=== PATIENT | female | born 1985 | race Caucasian/White ===

== ENCOUNTER 2020-12-05 21:09 | Emergency (ER) | payer OTHER ==
[~2020-12-05] VITALS: Ht 177.8 cm; Wt 126.2 kg
--- NOTE | 2020-12-05 21:42 | PHYS DOC ---
General Adult EDM: Chief Complaint: ABDOMINAL PAIN HPI: HPI: Patient is a 35-year-old female coming in for epigastric pain since yesterday and one episode of emesis just prior to arrival. Patient states the last time she ate or drink anything was about 7 hours prior to arrival. Denies any blood or bile in her vomitus. Denies any constipation or diarrhea, last bowel movement earlier today. Patient states she has a history of ulcers. Denies any history of pancreatitis or gallbladder disease. Patient states she has been under increased stress. Has not taken anything other than Aleve [id number] for the pain. Denies any fevers, cough, changes in urination. Is not taking any antacid medications. Review of Systems: Review of Systems: All other systems within normal limits except for as noted in the HPI Current Medications: Current Meds: Current Medications Medications (Trade) Dose Ordered Sig/Darling Start Time Stop Time Status Last Admin Dose Admin Multi-Ingredient Mouthwash/Gargle (Gi Cocktail) 20 ml 1X ONCE 12/05/20 21:45 12/05/20 21:46 UNV Ondansetron HCl (Zofran) 4 mg 1X ONCE 12/05/20 21:45 12/05/20 21:46 UNV Allergies: Allergies: Allergies Coded Allergies Type Severity Reaction Last Updated Verified No Known Drug Allergies 12/05/20 No Physical Exam: PE: Constitutional: Well developed, well nourished, no acute distress, non-toxic appearance. [] HENT: Normocephalic, atraumatic, bilateral external ears normal, nose normal. [] Eyes: PERRLA, conjunctiva normal, no discharge. [] Neck: No rigidity, supple, no stridor. [] Cardiovascular: Regular rate and rhythm, brisk cap refill [] Lungs & Thorax: Non labored symmetric respirations, no tachypnea or respiratory distress [] Abdomen: Soft, nondistended, no guarding or rebound, positive Alvarez sign, except gastritis, no hepatosplenomegaly. Skin: Warm, dry, no erythema, no rash. [] Back: Unremarkable Extremities: No deformities, range of motion grossly intact, no lower extremity edema [] Neurologic: Alert and oriented X 3, no focal deficits noted. [] Psychologic: Affect normal, judgement normal, mood normal. [] EKG: EKG: [] Radiology/Procedures: Radiology/Procedures: CT abdomen pelvis with contrast dated 12/05/2020. No comparison available. Clinical data indication: Right upper quadrant pain. TECHNIQUE: Contiguous axial imaging of the abdomen pelvis performed after the administration of 75 cc Omnipaque 300. One or more of the following individualized dose reduction techniques were utilized for this examination: 1. Automated exposure control 2. Adjustment of the mA and/or kV according to patient size 3. Use of iterative reconstruction technique. FINDINGS: Limited images of lung bases are clear. Heart size within normal limits. No pleural or pericardial effusion. Liver is of diffuse low density, compatible with fatty infiltration. No apparent mass. Biliary tree normal in caliber. Gallbladder unremarkable. Spleen is normal in size. Pancreas, adrenal glands and kidneys are unremarkable. No hydronephrosis. Unopacified GI tract normal in caliber and contour. No focal bowel wall thickening. No inflammatory stranding in the mesentery. No ascites or lymphadenopathy. Appendix is not clearly identified. No inflammatory changes in the right lower quadrant. Images of pelvis show nondistended urinary bladder. Uterus is surgically absent. No free fluid or lymphadenopathy. Bone windows show no acute findings. IMPRESSION: 1. No acute abnormality of abdomen or pelvis. 2. Mild fatty infiltration of the liver.[] Heart Score: C/O Chest Pain: No Risk Factors: Risk Factors: DM, Current or recent (<one month) smoker, HTN, HLP, family history of CAD, obesity. Risk Scores: Score 0 - 3: 2.5% MACE over next 6 weeks - Discharge Home Score 4 - 6: 20.3% MACE over next 6 weeks - Admit for Clinical Observation Score 7 - 10: 72.7% MACE over next 6 weeks - Early Invasive Strategies Course & Med Decision Making: Course & Med Decision Making Pertinent Labs and Imaging studies reviewed. (See chart for details) Currently improved with GI cocktail. His treatment for gastritis return precautions. [] Anthony Disclaimer: Anthony Disclaimer: This electronic medical record was generated, in whole or in part, using a voice recognition dictation system. Departure Departure: Impression: Primary Impression: Epigastric abdominal pain Disposition: 01 DC HOME SELF CARE/HOMELESS Condition: IMPROVED Referrals: SELVIN WHITING-C (PCP) Patient Instructions: Gastritis, Adult Scripts Ondansetron (ONDANSETRON ODT) 4 Mg Tab.rapdis 1 TAB PO PRN Q6-8HRS PRN for NAUSEA for 5 Days, #10 TAB Prov: LAINEY DUBON MD 12/05/20 Omeprazole (OMEPRAZOLE) 20 Mg Tablet.dr 1 TAB PO DAILY for antacid for 30 Days, #30 TAB 1 Refill Prov: LAINEY DUBON MD 12/05/20 Sucralfate (CARAFATE) 1 Gm Tablet 1 TAB PO QID for antacid for 30 Days, #120 TAB 0 Refills Prov: LAINEY DUBON MD 12/05/20 LAINEY DUBON MD Dec 05, 2020 21:42
[2020-12-05] MEDS ORDERED: LIDO:MAALOX 1:1 20 ML SINGLE DOSE. PO ONE (21:45)
[2020-12-05] MEDS ORDERED: ONDANSETRON PF 4 MG/2 ML VIAL. IVP ONE (21:45)
[2020-12-05] MEDS ORDERED: IOHEXOL 300 MG/ML 75 ML VIAL. IV ONE (21:45)
[2020-12-05] MEDS ORDERED: CONTRAST GIVEN. MC PRN (22:15)
[2020-12-05 22:24] LABS: BASO % 0 % (0-3); EOS # 0.1 x10^3/uL (0.0-0.7); EOS % 1 % (0-3); HEMATOCRIT 43.4 % (39.0-53.0); HEMOGLOBIN 14.3 g/dL (13.0-17.5); LYMPH # 0.7 x10^3/uL (1.0-4.8); LYMPH % 4 % (24-48); MEAN CORPUSCULAR HEMOGLOBIN 29 pg (25-35); MEAN CORPUSCULAR HGB CONC 33 g/dL (31-37); MEAN CORPUSCULAR VOLUME 88 fL (79-100); MONO # 0.6 x10^3/uL (0.0-1.1); MONO % 4 % (0-9); NEUT # 14.8 x10^3uL (1.8-7.7); NEUT % 91 % (31-73); PLATELET COUNT 310 x10^3/uL (140-400); RED BLOOD COUNT 4.91 x10^6/uL (4.30-5.70); RED CELL DISTRIBUTION WIDTH 13.4 % (11.5-14.5); WHITE BLOOD COUNT 16.2 x10^3/uL (4.0-11.0)
[2020-12-05 22:31] LABS: COLOR,URINE YELLOW
[2020-12-05 22:32] LABS: AMORPHOUS SEDIMENT,UR PRESENT /HPF; BACTERIA,URINE 0 /HPF (0-FEW); BILIRUBIN,URINE SMALL (NEG); CLARITY,URINE CLOUDY; GLUCOSE,URINE NEG (NEG); NITRITE,URINE NEG (NEG); RBC,URINE 0 /HPF (0-2); SQUAMOUS EPITHELIAL CELL,UR OCC /LPF; UROBILINOGEN,URINE 0.2 mg/dL (0.2 mg/dL); WBC,URINE RARE /HPF (0-4)
[2020-12-05 22:42] LABS: % BANDS 5 % (0-9); % LYMPHS 3 % (24-48); % MONOS 3 % (0-10); % SEGS 89 % (35-66); CALCIUM 8.8 mg/dL (8.5-10.1); CREATININE 0.8 mg/dL (0.7-1.3); PLT ESTIMATE ADEQUATE (ADEQUATE); POTASSIUM 3.8 mmol/L (3.5-5.1)
--- NOTE | 2020-12-05 22:47 | RAD ---
CT abdomen pelvis with contrast dated 12/05/2020. No comparison available. Clinical data indication: Right upper quadrant pain. TECHNIQUE: Contiguous axial imaging of the abdomen pelvis performed after the administration of 75 cc Omnipaque 300. One or more of the following individualized dose reduction techniques were utilized for this examinat ion: 1. Automated exposure control 2. Adjustment of the mA and/or kV according to patient size 3. Use of iterative reconstruction technique. FINDINGS: Limited images of lung bases are clear. Heart size within normal limits. No pleural or pericardial ef fusion. Liver is of diffuse low density, compatible with fatty infiltration. No apparent mass. Biliary tree n ormal in caliber. Gallbladder unremarkable. Spleen is normal in size. Pancreas, adrenal glands and kidneys are unremarkable. No hydronephrosis. Unopacified GI tract normal in caliber and contour. No focal bowel wall thickening. No inflammatory s tranding in the mesentery. No ascites or lymphadenopathy. Appendix is not clearly identified. No infl ammatory changes in the right lower quadrant. Images of pelvis show nondistended urinary bladder. Uterus is surgically absent. No free fluid or lym phadenopathy. Bone windows show no acute findings. IMPRESSION: 1. No acute abnormality of abdomen or pelvis. 2. Mild fatty infiltration of the liver. Electronically signed by: Gildardo Sofia MD (12/05/2020 10:44 PM) BRIAN
[2020-12-05 22:49] LABS: ALBUMIN/GLOBULIN RATIO 1.1 (1.0-1.7); TOTAL BILIRUBIN 0.5 mg/dL (0.2-1.0); TOTAL PROTEIN 7.5 g/dL (6.4-8.2)
[2020-12-05] MEDS ORDERED: OMEP20TA8 PO (23:30)
[2020-12-05] MEDS ORDERED: ONDA4TAB12 PO (23:30)
[2020-12-05] MEDS ORDERED: FAMOTIDINE 20 MG/2 ML VIAL IVP ONE (23:30)
[2020-12-05] MEDS ORDERED: SUCR1TAB35 PO (23:30)
[2020-12-05 23:31] VITALS: BP 124/72
[2020-12-05] MEDS ORDERED: ONDANSETRON ODT 4 MG TAB.RAPDIS ONE (23:40)
[2020-12-05] MEDS ORDERED: ONDANSETRON ODT 4 MG TAB.RAPDIS PO ONE (23:45)
== END 2020-12-05 23:44 | disposition home or self-care (01) ==
LOC: ER 21:09 → EDSEX 21:09 → ER 23:44
DX: R10.13 Epigastric pain (principal); R11.10 Vomiting, unspecified
CPT/HCPCS: 36415; 74177; 80053; 81001; 83690; 85007; 85025; 96374; 96375; 99285; J2405; J3010; J3490; Q0162; Q9967

== ENCOUNTER 2021-03-27 19:59 | Emergency (ER) | payer OTHER ==
[~2021-03-27] VITALS: Ht 177.8 cm; Wt 125.0 kg
[~2021-03-27 19:59] MED LIST: OMEP20TA8 PO; ONDA4TAB12 PO; SUCR1TAB35 PO
[2021-03-27] MEDS ORDERED: IV RINGERS SOLUTION,LACTATED 1,000 ML IV SCH (21:30)
[2021-03-27 22:25] LABS: BILIRUBIN,URINE NEG (NEG); CLARITY,URINE CLEAR; COLOR,URINE YELLOW; GLUCOSE,URINE NEG (NEG); NITRITE,URINE POS (NEG); UROBILINOGEN,URINE 0.2 mg/dL (0.2 mg/dL)
[2021-03-27 22:29] LABS: BARBITURATES NEG (NEG); BENZODIAZEPINES POS (NEG); CANNABINOIDS NEG (NEG); COCAINE NEG (NEG); METHADONE NEG (NEG); OPIATES NEG (NEG); PHENCYCLIDINE NEG (NEG)
[2021-03-27 22:32] LABS: AMPHETAMINE/METHAMPHETAMINE POS (NEG)
[2021-03-27 22:33] LABS: BACTERIA,URINE MANY /HPF (0-FEW); SQUAMOUS EPITHELIAL CELL,UR OCC /LPF
[2021-03-27 23:12] LABS: BASO % 1 % (0-3); EOS # 0.1 x10^3/uL (0.0-0.7); EOS % 1 % (0-3); HEMOGLOBIN 13.6 g/dL (12.0-15.5); LYMPH % 39 % (24-48); MEAN CORPUSCULAR HEMOGLOBIN 29 pg (25-35); MEAN CORPUSCULAR HGB CONC 33 g/dL (31-37); MEAN CORPUSCULAR VOLUME 87 fL (79-100); MONO # 0.3 x10^3/uL (0.0-1.1); MONO % 4 % (0-9); NEUT # 4.2 x10^3uL (1.8-7.7); NEUT % 55 % (31-73); PLATELET COUNT 359 x10^3/uL (140-400); RED BLOOD COUNT 4.69 x10^6/uL (3.50-5.40); RED CELL DISTRIBUTION WIDTH 13.6 % (11.5-14.5); WHITE BLOOD COUNT 7.6 x10^3/uL (4.0-11.0)
[2021-03-27 23:26] LABS: CALCIUM 9.1 mg/dL (8.5-10.1); CREATININE 0.8 mg/dL (0.6-1.0); GFR 81.2; POTASSIUM 3.8 mmol/L (3.5-5.1)
[2021-03-27] MEDS ORDERED: SULF1TAB24 PO (23:29)
[2021-03-27 23:33] LABS: ALBUMIN 4.4 g/dL (3.4-5.0); DIRECT BILIRUBIN 0.1 mg/dL (0.0-0.2); MAGNESIUM 2.2 mg/dL (1.8-2.4); TOTAL BILIRUBIN 0.2 mg/dL (0.2-1.0); TOTAL PROTEIN 7.8 g/dL (6.4-8.2)
[2021-03-27 23:34] LABS: SALIC < 2.8 mg/dL (2.8-20.0)
--- NOTE | 2021-03-27 23:34 | EKG ---
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
[2021-03-27 23:35] LABS: ACETAMIN < 2.0 mcg/mL (10-30); ETHANOL < 10 mg/dL (0-10)
[2021-03-27] MEDS ORDERED: SMZ/TMP 800/160MG TABLET. PO ONE (23:45)
[2021-03-28] MEDS ORDERED: cefTRIAXone SODIUM 1 GM VIAL ONE (06:12)
[2021-03-28] MEDS ORDERED: IV NORMAL SALINE 50ML 50 ML ONE (06:12)
--- NOTE | 2021-03-28 06:27 | PHYS DOC ---
Past History Past Medical History: Anxiety, Constipation, Depression, UTI, Other Additional Past Medical Histor: adhd, ulcers, perforated bowel Past Surgical History: Hysterectomy, Tonsillectomy Additional Past Surgical Histo: addenoidectomy Alcohol Use: None General Adult EDM: Chief Complaint: PSYCH EVALUATION HPI: HPI: ".. I ve been feeling very depressed.. feeling like like is worthless.. Like I just end it... Patient is a 36 year old female who presents with above hx and complaints of depression with suicidal ideation. Patient has a history of depression and anxiety. Patient has past medical history of insomnia and anxiety.. Patient has as a teenager self cut for emotional release. Patient is up-to-date with vaccinations including Moderna Covid vaccination completed on the 19 of January x 2. No recent travel. No specific ill contacts. Past surgical history of hysterectomy at age 28. 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 Patient denies any illicit drug use. Patient denies alcohol use. Review of Systems: Review of Systems: Constitutional: Denies fever or chills Eyes: Denies change in visual acuity HENT: Denies nasal congestion or sore throat Respiratory: Denies cough or shortness of breath Cardiovascular: Denies chest pain or edema GI: Denies abdominal pain, nausea, vomiting, bloody stools or diarrhea : Denies dysuria Musculoskeletal: Denies back pain or joint pain Integument: Denies rash Neurologic: Denies headache, focal weakness or sensory changes Endocrine: Denies polyuria or polydipsia Lymphatic: Denies swollen glands Psychiatric: Complains of depression, anxiety, insomnia, suicidal ideation Family History: Family History: Noncontributory to presentation Current Medications: Current Meds: Current Medications Medications (Trade) Dose Ordered Sig/Darling Start Time Stop Time Status Last Admin Dose Admin Ceftriaxone Sodium 1 gm/ Sodium Chloride 50 ml @ 100 mls/hr 1X ONCE 03/28/21 05:30 03/28/21 05:59 DC 03/28/21 06:17 100 MLS/HR Ceftriaxone Sodium (Rocephin) 1 gm STK-MED ONCE 03/28/21 06:12 03/28/21 06:12 DC Lactated Ringer's 1,000 ml @ 1,000 mls/hr Q1H 7/19/21 21:30 03/27/21 22:29 DC 03/27/21 22:48 1,000 MLS/HR Sodium Chloride 50 ml @ As Directed STK-MED ONCE 03/28/21 06:12 03/28/21 06:12 DC Trimethoprim/ Sulfamethoxazole (Bactrim Ds) 1 tab 1X ONCE 03/27/21 23:45 03/27/21 23:46 DC 03/27/21 23:44 1 TAB Allergies: Allergies: Allergies Coded Allergies Type Severity Reaction Last Updated Verified No Known Drug Allergies 12/05/20 No Physical Exam: PE: Constitutional: Moderate acute functional distress, non-toxic appearance. [] HENT: Normocephalic, atraumatic, bilateral external ears normal, oropharynx moist, no oral exudates, nose normal. [] Eyes: PERRLA, EOMI, conjunctiva normal, no discharge. [] Neck: Normal range of motion, no tenderness, supple, no stridor. [] Cardiovascular:Heart rate regular rhythm, no murmur [] Lungs & Thorax: Bilateral breath sounds "apex on auscultation [] Abdomen: Bowel sounds normal, soft, no tenderness, no masses, no pulsatile masses. Obese. Old surgical scar. Skin: Warm, dry, no erythema, no rash. [] Back: No tenderness, no CVA tenderness. [] Extremities: No tenderness, no cyanosis, no clubbing, ROM intact, no edema. No cording. Neurologic: Alert and oriented X 3, moves extremities on request, has distal sensory, no focal deficits noted. [] Psychologic: Affect anxious, judgement normal, mood depressed Current Patient Data: Labs: Laboratory Tests Test 03/27/21 21:00 03/27/21 22:50 03/27/21 23:02 Urine Collection Type Unknown Urine Color Yellow Urine Clarity Clear Urine pH 6.0 Urine Specific Calvert >=1.030 Urine Protein Neg (NEG-TRACE) Urine Glucose (UA) Neg mg/dL (NEG) Urine Ketones (Stick) Trace mg/dL (NEG) Urine Blood Small (NEG) Urine Nitrite Pos (NEG) Urine Bilirubin Neg (NEG) Urine Urobilinogen Dipstick 0.2 mg/dL (0.2 mg/dL) Urine Leukocyte Esterase Neg (NEG) Urine RBC 6-10 /HPF (0-2) Urine WBC 11-20 /HPF (0-4) Urine Squamous Epithelial Cells Occ /LPF Urine Bacteria Many /HPF (0-FEW) Urine Mucus Mod /LPF Urine Opiates Screen Neg (NEG) Urine Methadone Screen Neg (NEG) Urine Barbiturates Neg (NEG) Urine Phencyclidine Screen Neg (NEG) Urine Amphetamine/Methamphetamine Pos (NEG) Urine Benzodiazepines Screen Pos (NEG) Urine Cocaine Screen Neg (NEG) Urine Cannabinoids Screen Neg (NEG) Urine Ethyl Alcohol Neg (NEG) White Blood Count 7.6 x10^3/uL (4.0-11.0) Red Blood Count 4.69 x10^6/uL (3.50-5.40) Hemoglobin 13.6 g/dL (12.0-15.5) Hematocrit 41.0 % (36.0-47.0) Mean Corpuscular Volume 87 fL (79-100) Mean Corpuscular Hemoglobin 29 pg (25-35) Mean Corpuscular Hemoglobin Concent 33 g/dL (31-37) Red Cell Distribution Width 13.6 % (11.5-14.5) Platelet Count 359 x10^3/uL (140-400) Neutrophils (%) (Auto) 55 % (31-73) Lymphocytes (%) (Auto) 39 % (24-48) Monocytes (%) (Auto) 4 % (0-9) Eosinophils (%) (Auto) 1 % (0-3) Basophils (%) (Auto) 1 % (0-3) Neutrophils # (Auto) 4.2 x10^3uL (1.8-7.7) Lymphocytes # (Auto) 3.0 x10^3/uL (1.0-4.8) Monocytes # (Auto) 0.3 x10^3/uL (0.0-1.1) Eosinophils # (Auto) 0.1 x10^3/uL (0.0-0.7) Basophils # (Auto) 0.0 x10^3/uL (0.0-0.2) Maternal Serum HCG Beta Subunit < 1 mIU/mL (0-6) Sodium Level 142 mmol/L (136-145) Potassium Level 3.8 mmol/L (3.5-5.1) Chloride Level 106 mmol/L (98-107) Carbon Dioxide Level 24 mmol/L (21-32) Anion Gap 12 (6-14) Blood Urea Nitrogen 8 mg/dL (7-20) Creatinine 0.8 mg/dL (0.6-1.0) Estimated GFR (Cockcroft-Gault) 81.2 Glucose Level 108 mg/dL (70-99) H Calcium Level 9.1 mg/dL (8.5-10.1) Magnesium Level 2.2 mg/dL (1.8-2.4) Total Bilirubin 0.2 mg/dL (0.2-1.0) Direct Bilirubin 0.1 mg/dL (0.0-0.2) Aspartate Amino Transferase (AST) 15 U/L (15-37) Alanine Aminotransferase (ALT) 36 U/L (14-59) Alkaline Phosphatase 74 U/L (46-116) Creatine Kinase 91 U/L (26-192) Troponin I Quantitative < 0.017 ng/mL (0-0.055) Total Protein 7.8 g/dL (6.4-8.2) Albumin 4.4 g/dL (3.4-5.0) Salicylates Level < 2.8 mg/dL (2.8-20.0) L Salicylate Last Dose Date Unknown Salicylate Last Dose Time Unknown Acetaminophen Level < 2.0 mcg/mL (10-30) L Acetaminophen Last Dose Date Unknown Acetaminophen Last Dose Time Unknown Ethyl Alcohol Level < 10 mg/dL (0-10) SARS-CoV-2 Antigen (Rapid) Negative (NEGATIVE) Vital Signs: Vital Signs Date Time Temp Pulse Resp B/P (MAP) Pulse Ox O2 Delivery O2 Flow Rate FiO2 03/27/21 23:13 81 16 148/84 (105) 99 Room Air 03/27/21 21:39 98.2 EKG: EKG: My interpretation EKG shows sinus rhythm 82 bpm. No acute morphology. [] Radiology/Procedures: Radiology/Procedures: [] Heart Score: C/O Chest Pain: N/A Risk Factors: Risk Factors: DM, Current or recent (<one month) smoker, HTN, HLP, family history of CAD, obesity. Risk Scores: Score 0 - 3: 2.5% MACE over next 6 weeks - Discharge Home Score 4 - 6: 20.3% MACE over next 6 weeks - Admit for Clinical Observation Score 7 - 10: 72.7% MACE over next 6 weeks - Early Invasive Strategies Course & Med Decision Making: Course & Med Decision Making Pertinent Labs and Imaging studies reviewed. (See chart for details) See PAT fabienne. Awaiting placement. Advised pt. will he ED hold until after shift change. Patient states Bactrim DS twice a day for the next 7 days. Follow-up urine cultures. Pt. endorsed to Dr. Osorio at shift change. Impression: 1. Depression 2. Suicidal ideation 3. UTI 4. Anxiety 5. Rapid Covid neg. [] Anthony Disclaimer: Anthony Disclaimer: This electronic medical record was generated, in whole or in part, using a voice recognition dictation system. Departure Departure: Impression: Primary Impression: Depression [facility] Condition: GUARDED Patient Instructions: Urinary Tract Infection, Tmdy-xa-Dolf, Suicidal Feelings, How to Help Yourself, Suicide, Helping Someone Who is Suicidal Scripts Sulfamethoxazole/Trimethoprim (BACTRIM DS TABLET) 1 Each Tablet 1 TAB PO BID for Urinary Tract for 7 Days, #14 TAB 0 Refills Prov: KARL LEGGETT MD 03/27/21 KARL LEGGETT MD Mar 28, 2021 06:27
[2021-03-28 12:55] VITALS: BP 149/95
[2021-03-28] MEDS ORDERED: LORazepam 1 MG TABLET PO ONE (13:00)
== END 2021-03-28 13:57 | disposition short-term general hospital (02) ==
LOC: ER 19:59
DX: R45.851 Suicidal ideations (principal); F32.9 Major depressive disorder, single episode, unspecified; N39.0 Urinary tract infection, site not specified; F41.9 Anxiety disorder, unspecified; G47.00 Insomnia, unspecified; Z20.822 Contact with and (suspected) exposure to COVID-19
CPT/HCPCS: 36415; 80048; 80076; 80307; 80329; 81001; 82550; 83735; 84443; 84484; 84702; 85025; 87086; 87426; 87491; 87591; 93005; 96361; 96365; 99285; G0480; J7120; U0003